=== PATIENT | female | born 1980 | race Hispanic/Latino ===

== ENCOUNTER 2018-09-27 14:49 | Outpatient (CLI) | payer MEDICAID ==
--- NOTE | 2018-09-27 15:38 | ULT ---
PELVIC ULTRASOUND: HISTORY: Pelvic pain x 4-5 months. FINDINGS: Rela-time images of the pelvis were obtained both transabdominally as well as with an endovaginal pro be. The uterus is somewhat elongated. It measures 3.8 x 6.3 x 11 cm. No fibroids identified. Endo metrium is in the 7 mm range. Neither right or left ovary is identified. IMPRESSION: 1. Neither right or left ovaries are identified. 2. No evidence of fibroids. POS: [facility]
== END 2018-09-27 14:50 | disposition home or self-care (01) ==
LOC: BICULT 14:49
PROVIDERS: ATTEND Physician Assistant
DX: R10.30 Lower abdominal pain, unspecified (principal)
CPT/HCPCS: 76856

== ENCOUNTER 2018-12-17 21:32 | Emergency (ER) | payer MEDICAID, SELFPAY ==
[2018-12-17 21:58] LABS: #Basophils 0.1 thou/uL (0.0-0.2); #Eosinphils 0.1 thou/uL (0.0-0.7); #Lymphocytes 2.8 thou/uL (1.20-3.40); #Monocytes 0.5 thou/uL (0.11-0.59); #Neutrophils 4.6 thou/uL (1.40-6.50); %Basophils 0.9 % (0.0-1.0); %Eosinophils 1.3 % (0.0-10.0); %Lymphocytes 34.3 % (21.0-51.0); %Monocytes 6.6 % (0.0-10.0); %Neutrophils 56.9 % (42.0-75.0); Hemoglobin 12.4 g/dL (12.0-16.0); Mean Corpuscular HGB CONC 33.2 g/dL (32.0-36.0); Mean Corpuscular Hemoglobin 27.5 pg (27.0-31.0); Mean Corpuscular Volume 82.8 fL (78.0-98.0); Mean Platelet Volume 7.8 fL (7.4-10.4); Platelet Count 311 thou/uL (130-400); RBC Distribution Width 12.1 % (11.5-14.5); Red Blood Cell (RBC) Count 4.52 mill/uL (4.20-5.40); White Blood Cell (WBC) Count 8.2 thou/uL (4.8-10.8)
--- NOTE | 2018-12-17 22:09 | RAD ---
XR Chest 1 View Portable HISTORY: Chest pain COMPARISON: None FINDINGS: Heart size and mediastinum are within normal limits. The lungs are clear of infiltrates. No signs of failure. No bony findings. IMPRESSION: Unremarkable chest
[2018-12-17 22:17] LABS: ALT (SGPT) 30 U/L (8-55); AST (SGOT) 17 U/L (5-34); Albumin 3.9 g/dL (3.5-5.0); Alkaline Phosphatase 98 U/L (40-150); Anion Gap 10 mmol/L (10-20); BUN (Urea Nitrogen) 12 mg/dL (7.0-18.7); Bilirubin, Total Less than 0.2 mg/dL (0.2-1.2); Calc. Creatinine Clearance 0 mL/min (70-130); Calcium 9.1 mg/dL (7.8-10.44); Carbon Dioxide 25 mmol/L (22-29); Chloride 102 mmol/L (98-107); Estimated GFR-MDRD 84; Globulin 3.3 g/dL (2.4-3.5); Glucose 282 mg/dL (70-105); Protein, Total 7.2 g/dL (6.0-8.3); Sodium 133 mmol/L (136-145)
[2018-12-17 22:24] LABS: BHCG - Serum Negative (NEGATIVE); Pregs Control Background? CLEAR/WHITE (CLR/WHITE); Pregs Control Bar Appear? YES (CONTROL BAR)
--- NOTE | 2018-12-21 17:08 | EKG ---
Test Reason : CP Blood Pressure : / mmHG Vent. Rate : 062 BPM Atrial Rate : 062 BPM P-R Int : 124 ms QRS Dur : 104 ms QT Int : 434 ms P-R-T Axes : -13 036 022 degrees QTc Int : 440 ms Normal sinus rhythm Normal ECG Confirmed by SONY MOORE DO ([id number]), index editor HILDA JEREZ ([id number]) on 12/21/2018 5:08:42 PM Referred By: Confirmed By:SONY MOORE DO
== END 2018-12-17 23:39 | disposition home or self-care (01) ==
LOC: ERS 21:32
DX: R07.2 Precordial pain (principal); E11.9 Type 2 diabetes mellitus without complications; F17.210 Nicotine dependence, cigarettes, uncomplicated; F41.9 Anxiety disorder, unspecified; Z79.4 Long term (current) use of insulin
CPT/HCPCS: 71045; 80053; 84484; 84703; 85025; 85379; 93005